=== PATIENT | male | born 1940 | race Two or more races ===

== ENCOUNTER 2019-11-28 10:47 | Emergency (ER) | payer OTHER ==
[2019-11-28 10:53] VITALS: TEMP 98.8; BMI 29.4
[2019-11-28] MEDS ORDERED: SODIUM CHLORIDE 1,000 ML IV STA (10:53)
--- NOTE | 2019-11-28 10:54 | PDOC ---
Rapid Medical Evaluation Chief Complaint: Weakness Time Seen by Provider: 11/28/19 10:51 Medical Evaluation: Allergies Allergy/AdvReac Type Severity Reaction Status Date / Time No Known Allergies Allergy Verified 11/28/19 10:50 11/28/19 10:51 Pt with PMH of HTN presents to the ER for one day of weakness. Pt states he is being treated for prostatitis and they recently changed his medication. He is eating and drinking appropriately. Exam: NAD, ambulatory, VSS Orders: labs, fluids Pt to proceed to the ER for further evaluation Discharge Disposition - Diagnosis Weakness - Referrals - Patient Instructions - Post Discharge Activity
[2019-11-28 11:57] LABS: BASO % 0.5 % (0-2.0); HEMATOCRIT 39.6 % (35.4-49); HEMOGLOBIN 13.7 GM/dL (11.7-16.9); LYMPH % 27.4 % (8-40); MCH 33.4 pg (25.7-33.7); MCHC 34.6 g/dl (32.0-35.9); MEAN CELL VOLUME 96.5 fl (80-96); MEAN PLT VOLUME 8.8 fl (7.5-11.1); MONO % 9.8 % (3.8-10.2); NEUT % 61.3 % (42.8-82.8); PLATELET COUNT 235 K/MM3 (134-434); RBC 4.11 M/mm3 (4.00-5.60); RDW 12.8 % (11.9-15.9); WHITE BLOOD COUNT 6.6 K/mm3 (4.0-10.0)
[2019-11-28 12:16] LABS: ALBUMIN 3.8 g/dl (3.4-5.0); BILIRUBIN,TOTAL 0.6 mg/dL (0.2-1); BLOOD UREA NITROGEN 14.3 mg/dL (7-18); CALCIUM 9.6 mg/dL (8.5-10.1); CREATININE 1.2 mg/dL (0.55-1.3); POTASSIUM 4.2 mmol/L (3.5-5.1)
--- NOTE | 2019-11-28 13:10 | PDOC ---
History of Present Illness - General Chief Complaint: Weakness Stated Complaint: WEAKNESS Time Seen by Provider: 11/28/19 10:51 - History of Present Illness Initial Comments: 11/28/19 13:06 HPI: 79 y/o M hx of HTN, BPH currently on abx for prostatitis has had increased fatigue for the last 3 days. Pt reports starting abx treatment 3 days ago (amoxicillin-clavulanate) and switching to afluzosin. Pt reports feeling tired/fatigued despite feeling well rested.This occurs both at rest and with minimal exertion. Pt takes antihypertensive medications as well .Pt denies any dizziness, lightheadedness, chest pain, shortness of breath, headache, nausea, vomiting, diarrhea, dark starry stools, blood per rectum, falls or trauma, n umbness or tingling, fevers, chills. PMHx: as noted above ROS: as noted SHx: Denies Etoh, IVDA, tobacco use Allergies: PENECILLIN PCP: dr Kushal rosado devulcanizer loader: Dr. Dillon Monzon Urologist: Dr. Khadar Watters ROS: GENERAL/CONSTITUTIONAL: No fever or chills. No weakness. HEAD, EYES, EARS, NOSE AND THROAT: No change in vision. No ear pain or discharge. No sore throat. CARDIOVASCULAR: No chest pain or shortness of breath RESPIRATORY: No cough, wheezing, or hemoptysis. GASTROINTESTINAL: No nausea, vomiting, diarrhea or constipation. GENITOURINARY: No dysuria, frequency, or change in urination. MUSCULOSKELETAL: No joint or muscle swelling or pain. No neck or back pain. SKIN: No rash NEUROLOGIC: No headache, vertigo, loss of consciousness. ENDOCRINE: No increased thirst. No abnormal weight change HEMATOLOGIC/LYMPHATIC: No anemia, easy bleeding, or history of blood clots. ALLERGIC/IMMUNOLOGIC: No hives or skin allergy. PE: GENERAL: Awake, alert, and fully oriented, in no acute distress HEAD: No signs of trauma, normocephalic, atraumatic EYES: PERRLA, EOMI, sclera anicteric, conjunctiva clear ENT: Auricles normal inspection, hearing grossly normal, nares patent, oropharynx clear without exudates. Moist mucosa NECK: Normal ROM, supple, no lymphadenopathy, JVD, or masses LUNGS: No distress, speaks full sentences, clear to auscultation bilaterally HEART: Regular rate and rhythm, normal S1 and S2, no murmurs, rubs or gallops, peripheral pulses normal and equal bilaterally. ABDOMEN: Soft, nontender, normoactive bowel sounds. No guarding, no rebound. No masses EXTREMITIES : Normal inspection, Normal range of motion, no edema. No clubbing or cyanosis NEUROLOGICAL: Cranial nerves II through XII grossly intact. Normal speech, no focal sensorimotor deficits SKIN: Warm, Dry, normal turgor, no rashes or lesions noted 11/28/19 16:06 11/28/19 18:11 Past History - Medical History Allergies/Adverse Reactions: Allergies Allergy/AdvReac Type Severity Reaction Status Date / Time No Known Allergies Allergy Verified 11/28/19 10:50 Home Medications: Ambulatory Orders Alfuzosin HCl [Uroxatral] 10 mg PO HS 11/28/19 Amlodipine Besylate [Norvasc -] 5 mg PO DAILY 11/28/19 Amoxicillin/Potassium Clav [Augmentin 875-125 Tablet] 1 each PO BID 11/28/19 Aspirin [ASA -] 81 mg PO DAILY 11/28/19 Metoprolol Succinate [Toprol Xl] 50 mg PO DAILY 11/28/19 COPD: No HTN: Yes Other medical history: prostatre problems - Psycho-Social/Smoking History Smoking History: Never smoked - Substance Abuse Hx (Audit-C & DAST Scrn) How often the patient has a drink containing alcohol: Never Score: In Men: 4 or > Positive; In Women: 3 or > Positive: 0 Screen Result (Pos requires Nsg. Audit-10AR): Negative In the last yr the pt used illegal drug/Rx for NonMed reason: No Score: Yes response is considered Positive: 0 Screen Result (Positive result requires Nsg. DAST-10): Negative *Physical Exam - Vital Signs Last Vital Signs Temp Pulse Resp BP Pulse Ox 98.8 F 64 18 132/70 97 11/28/19 10:50 11/28/19 12:07 11/28/19 12:06 11/28/19 12:07 11/28/19 12:06 ED Treatment Course - LABORATORY CBC & Chemistry Diagram: 11/28/19 11:40 11/28/19 11:40 - ADDITIONAL ORDERS Additional order review: Laboratory Results 11/28/19 11:40 Sodium 136 Potassium 4.2 Chloride 102 Carbon Dioxide 25 Anion Gap 9 BUN 14.3 Creatinine 1.2 Est GFR (CKD-EPI)AfAm 67.20 Est GFR (CKD-EPI)NonAf 57.98 Random Glucose 98 Calcium 9.6 Total Bilirubin 0.6 AST 22 ALT 21 Alkaline Phosphatase 52 Total Protein 7.0 Albumin 3.8 11/28/19 11:40 RBC 4.11 MCV 96.5 H MCHC 34.6 RDW 12.8 MPV 8.8 Neutrophils % 61.3 Lymphocytes % 27.4 Monocytes % 9.8 Eosinophils % 1.0 Basophils % 0.5 - Medications Given in the ED: ED Medications Discontinued Medications Generic Name Dose Route Start Last Admin Trade Name Freq PRN Reason Stop Dose Admin Sodium Chloride 1,000 mls @ 1,000 mls/hr 11/28/19 10:53 11/28/19 12:08 Normal Saline - IV 11/28/19 11:52 1,000 mls/hr ASDIR STA Administration Medical Decision Making - Medical Decision Making 11/28/19 13:10 79 y/o M hx of HTN, BPH currently on abx for prostatitis has had increased fatigue for the last 3 days. labs, ekg, ua, urine culture orthostatic vitals, 11/28/19 14:42 labs unremarkable, UA unremarkable drop in orthostatic vitals >20/10 (systolic/diastolic). though lowered, still within normal limits to maintain MAP above 65 pt feeling better after IV fluids. cards consult (pts devulcanizer loader Dr. Monzon) for marked sinus arrhythmia on ekg 11/28/19 16:[address] Monzon, pt can follow up with his PMD discharge/care instructions have been explained to the patient and he confirms understanding. feeling well enough to go home. 11/28/19 16:11 11/28/19 18:13 Discharge - Discharge Information Problems reviewed: Yes Clinical Impression/Diagnosis: Weakness Condition: Improved Disposition: HOME - Follow up/Referral Referrals: Laura Rosado MD [Primary Care Provider] - - Patient Discharge Instructions Additional Instructions: Have someone stay with you until you feel stable. Do not drive, operate [employer], or play sports until your caregiver says it is okay. Keep all follow-up appointments as directed by your caregiver. Lie down right away if you start feeling weak. You had a recent change in your medications which may be causing your symptoms. It is important that you follow up with your primary care doctor, tomorrow to establish a [place] [facility] plan. You are currently taking blood pressure or heart medicine, get up slowly, taking several minutes to sit and then stand. This can reduce dizziness. SEEK IMMEDIATE MEDICAL CARE IF: You have a severe headache. You have unusual pain in the chest, abdomen, or back. You are bleeding from the mouth or rectum, or you have a black or tarry stool. You have an irregular or very fast heartbeat. You have pain with breathing. You have repeated fainting or seizure-like jerking during an episode. You faint when sitting or lying down. You have confusion. You have difficulty walking. You have severe weakness. You have vision problems. If you fainted, call your local emergency services - do not drive yourself to the hospital. - Post Discharge Activity
--- NOTE | 2019-11-28 13:17 | PDOC ---
Documentation entered by Negra Nicholson SCRIBE, acting as scribe for Jamison Romo MD. Jamison Romo MD: This documentation has been prepared by the Bharat fu Maria, SCRIBE, under my direction and personally reviewed by me in its entirety. I confirm that the documentation accurately reflects all work, treatment, procedures, and medical decision making performed by me. Attending Attestation - Resident Resident Name: DanishTonoriamae - ED Attending Attestation I have performed the following: I have examined & evaluated the patient, The case was reviewed & discussed with the resident, I agree w/resident's findings & plan, Exceptions are as noted - HPI HPI: 11/28/19 12:49 The patient is a 79 year old male with a significant past medical history of HTN and BPH who presents to the emergency department with 1 day of generalized weakness. As per patient, he woke up yesterday and felt generally weak. He states he is currently being treated for prostatitis with amoxicillin by his urologist and has been compliant with his high blood pressure medication. Denies any new changes to his medication. Voices no other complaints. He denies any recent fevers, chills, headache or dizziness. He denies any recent nausea, vomit, diarrhea or constipation. He denies any recent chest pain or shortness of breath. He denies any recent dysuria, frequency, urgency or hematuria. - Physicial Exam PE: 11/28/19 12:45 GENERAL: The patient is awake, alert, and fully oriented, Nontoxic - in no acute distress. HEAD: Normocephalic, atraumatic. EYES: extraocular movements intact, sclera anicteric, conjunctiva clear. ENT: Normal voice, Moist mucous membranes. NECK: Normal range of motion, supple LUNGS: Breath sounds equal, clear to auscultation bilaterally. No wheezes, no rhonchi, no rales. HEART: Regular rate and rhythm, normal S1 and S2 without murmur, rub or gallop. ABDOMEN: Soft, nontender, No guarding, no rebound. No CVA tenderness EXTREMITIES: Normal range of motion, no edema. NEUROLOGICAL: No facial assymetry, Normal speech, PSYCH: Normal mood, normal affect. SKIN: Warm, Dry, normal turgor, - Medical Decision Making 11/28/19 11:45 79y M presents with episodic genaerlized weakness without other symptoms. currently feels well. exam unremarkble ddx inclues anemia, metablic derangment, acs, occult infection chilo ck labs, ua, ekg, trops will santiago fluids will erasess 11/28/19 12:47 labs reviewed - unremarkable bp noted for orthostasis will hydrate awaiting UA pt feelin gimproved if ua neg, will ambulate p if feeling wiell anticipate dc Discharge - Discharge Information Problems reviewed: Yes Clinical Impression/Diagnosis: Weakness Condition: Improved Disposition: HOME - Follow up/Referral Referrals: Laura Hernandez MD [Primary Care Provider] - - Patient Discharge Instructions Additional Instructions: Have someone stay with you until you feel stable. Do not drive, operate machinery, or play sports until your caregiver says it is okay. Keep all follow- up appointments as directed by your caregiver. Lie down right away if you start feeling weak. You had a recent change in your medications which may be causing your symptoms. It is important that you follow up with your primary care doctor, tomorrow to establish a long term care social worker plan. You are currently taking blood pressure or heart medicine, get up slowly, taking several minutes to sit and then stand. This can reduce dizziness. SEEK IMMEDIATE MEDICAL CARE IF: You have a severe headache. You have unusual pain in the chest, abdomen, or back. You are bleeding from the mouth or rectum, or you have a black or tarry stool. You have an irregular or very fast heartbeat. You have pain with breathing. You have repeated fainting or seizure-like jerking during an episode. You faint when sitting or lying down. You have confusion. You have difficulty walking. You have severe weakness. You have vision problems. If you fainted, call your local emergency services - do not drive yourself to the hospital. - Post Discharge Activity
[2019-11-28 13:47] LABS: URINE APPEARANCE Clear; URINE BILIRUBIN Negative (NEGATIVE); URINE COLOR Yellow; URINE GLUCOSE (UA) Negative (NEGATIVE); URINE KETONE Negative (NEGATIVE); URINE LEUK ESTERASE Negative (NEGATIVE); URINE NITRITE Negative (NEGATIVE); URINE PROTEIN Negative (NEGATIVE); URINE UROBILINOGEN 0.2 mg/dL (0.2-1.0)
[2019-11-28 16:07] VITALS: BP 149/79; PULSE 62
--- NOTE | 2019-11-29 09:24 | EKG ---
Test Reason : Blood Pressure : / mmHG Vent. Rate : 061 BPM Atrial Rate : 078 BPM P-R Int : 144 ms QRS Dur : 090 ms QT Int : 424 ms P-R-T Axes : 047 -38 021 degrees QTc Int : 426 ms SINUS RHYTHM with either nonconducted APC or SN exit block , PREMATURE VENTRICULAR COMPLEXES LEFT AXIS DEVIATION ABNORMAL ECG NO PREVIOUS ECGS AVAILABLE Confirmed by MAYO DIMAS MD ([id number]) on 11/29/2019 9:23:50 AM Referred By: Confirmed By:MAYO DIMAS MD
== END 2019-11-28 16:07 | disposition home or self-care (01) ==
LOC: JER 10:47
PROC: 3E0337Z Introduction of Electrolytic and Water Balance Substance into Peripheral Vein, Percutaneous Approach (ICD-10-PCS; principal; 2019-11-28)
DX: R53.1 Weakness (principal)
CPT/HCPCS: 36415; 80053; 81003; 85025; 87086; 93005; 93010; 96360; 99284-25

== ENCOUNTER 2019-12-12 15:44 | Emergency (ER) | payer OTHER ==
--- NOTE | 2019-12-12 15:50 | PDOC ---
Rapid Medical Evaluation Time Seen by Provider: 12/12/19 15:46 Medical Evaluation: Allergies Allergy/AdvReac Type Severity Reaction Status Date / Time No Known Allergies Allergy Verified 11/28/19 10:50 12/12/19 15:47 I performed a brief in-person evaluation of this patient. Pt is a 79 y/o male fell yesterday leaving a building and states he hurt his back. Pt denies hitting his head or LOC. He is complaining of right lower back pain. Has a h/o of prostate disease and HTN. Pertinent physical exam findings: right lumbar back tenderness to palpation I have ordered the following: lumbar spine xr Patient to proceed to ED for further evaluation. Discharge Disposition - Diagnosis Low back pain - Referrals - Patient Instructions - Post Discharge Activity
[2019-12-12 15:52] VITALS: BP 148/74; PULSE 55; TEMP 98.8; BMI 28.3
--- NOTE | 2019-12-12 16:18 | PDOC ---
History of Present Illness - General Chief Complaint: Back Pain Stated Complaint: BACK PAIN Time Seen by Provider: 12/12/19 15:46 History Source: Patient Exam Limitations: No Limitations - History of Present Illness Initial Comments: 12/12/19 16:15 79-year-old male presents to ED status post mechanical fall yesterday. Patient states was walking when he slipped on the pavement causing him to land backwards striking his lower back onto the ground. Patient states did not hit his head had no LOC and was ambulatory after. Patient states took 2 Tylenol last night with moderate effect but since symptoms continued he decided come to the ER for further evaluation. Patient denies any lower extremity pain, blood in urine, abdominal pain, shortness of breath, or chest pain. Occurred: reports: yesterday Severity: reports: mild Pain Location: reports: back, pelvis (Right posterior) Method of Injury: Yes: fall Modifying Factors: improves with: None Loss of Consciousness: no loss of consciousness Associated Symptoms (Fall): denies symptoms Past History - Travel History Traveled outside of the country in the last 30 days: No Close contact w/someone who was outside of country & ill: No - Medical History Allergies/Adverse Reactions: Allergies Allergy/AdvReac Type Severity Reaction Status Date / Time No Known Allergies Allergy Verified 11/28/19 10:50 Home Medications: Ambulatory Orders Alfuzosin HCl [Uroxatral] 10 mg PO HS 11/28/19 Amlodipine Besylate [Norvasc -] 5 mg PO DAILY 11/28/19 Amoxicillin/Potassium Clav [Augmentin 875-125 Tablet] 1 each PO BID 11/28/19 Aspirin [ASA -] 81 mg PO DAILY 11/28/19 Metoprolol Succinate [Toprol Xl] 50 mg PO DAILY 11/28/19 COPD: No HTN: Yes - Psycho-Social/Smoking History Patient Lives Alone: No Smoking History: Never smoked - Substance Abuse Hx (Audit-C & DAST Scrn) How often the patient has a drink containing alcohol: Never Score: In Men: 4 or > Positive; In Women: 3 or > Positive: 0 Screen Result (Pos requires Nsg. Audit-10AR): Negative In the last yr the pt used illegal drug/Rx for NonMed reason: No Score: Yes response is considered Positive: 0 Screen Result (Positive result requires Nsg. DAST-10): Negative Trauma Specific PMHX - Complaint Specific PMHX Arthritis: No Review of Systems - Review of Systems Able to Perform ROS?: Yes Is the patient limited Tajik proficient: No Constitutional: No: Symptoms Reported HEENTM: No: Blurred Vision Respiratory: No: Shortness of Breath Cardiac (ROS): No: Chest Pain ABD/GI: No: Symptoms Reported Musculoskeletal: Yes: Back Pain, Joint Pain Integumentary: No: Symptoms Reported Neurological: No: Symptoms reported *Physical Exam - Vital Signs Last Vital Signs Temp Pulse Resp BP Pulse Ox 98.8 F 55 L 19 148/74 97 12/12/19 15:46 12/12/19 15:46 12/12/19 15:46 12/12/19 15:46 12/12/19 15:46 - Physical Exam General Appearance: Yes: Nourished, Appropriately Dressed. No: Apparent Distress Neck: positive: Supple. negative: Decreased range of motion Respiratory/Chest: positive: Lungs Clear, Normal Breath Sounds. negative: Chest Tender, Respiratory Distress, Accessory Muscle Use Cardiovascular: positive: Regular Rhythm, Bradycardia. negative: Murmur Gastrointestinal/Abdominal: positive: Soft. negative: Tenderness Musculoskeletal: positive: Other (Right paraspinous at L4-L5 level along with a posterior pelvis pain along the ischio tuberosity). negative: Vertebral Tenderness Extremity: positive: Normal Capillary Refill, Normal Inspection, Normal Range of Motion Integumentary: positive: Normal Color, Warm, Moist. negative: Erythema, Swelling, Ecchymosis, Bruising Neurologic: positive: Motor Strength 5/5 (Ambulatory) Medical Decision Making - Medical Decision Making 12/12/19 16:22 Chief complaint: Patient status post mechanical fall now with right lower back pain with moderate relief after taking Tylenol last night. Patient has no other complaints. Exam: Patient with tenderness at right paraspinous area along with right posterior pelvis. Plan: Patient order for lumbar spine along with pelvis x-ray 12/12/19 17:27 X-rays negative for acute pathology. Will discharge discharge patient home with recommendations to continue with Motrin or Tylenol for discomfort allowing area to rest applying ice as needed for the next 72 hours Discharge - Discharge Information Problems reviewed: Yes Clinical Impression/Diagnosis: Low back pain Condition: Good Disposition: HOME - Follow up/Referral Referrals: Laura Hernandez MD [Primary Care Provider] - - Patient Discharge Instructions Patient Printed Discharge Instructions: DI for Contusion Additional Instructions: May take Motrin 600 mg every 8 hours or Tylenol 975 mg every 8 hours for discomfort. Allow area to rest avoiding movements that trigger discomfort. May apply ice to the affected area for the next 3 days as much as you can tolerate. If symptoms continue greater in 5 days consider follow-up with your PMD and/or orthopedist - Post Discharge Activity
== END 2019-12-12 17:30 | disposition home or self-care (01) ==
LOC: JER 15:44 → JERFT 15:44
DX: M54.5 Low back pain (principal)
CPT/HCPCS: 72100-TC-FY; 72170-TC-FY; 99284-25